=== PATIENT | male | born 2000 | race Caucasian/White ===

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

== ENCOUNTER 2023-12-29 14:58 | Observation (INO) | payer OTHER ==
[~2023-12-29] VITALS: Ht 175.3 cm; Wt 71.3 kg
[2023-12-29] VITALS (289 sets, daily range): BP systolic 118–122; BP diastolic 56–68; PULSE 85–91; TEMP 98.5; O2SAT 95–100
[~2023-12-29 14:58] MED LIST: HUMALOG100 U/ML SQ
[2023-12-29] MEDS ORDERED: Ondansetron 4 MG/2 ML VIAL IV ONE (15:45)
[2023-12-29] MEDS ORDERED: NS 1,000 ML IV ONE ×2 (15:45→16:45)
[2023-12-29 16:00] LABS: ACETONE,SERUM SMALL
[2023-12-29 16:04] LABS: BASO # 0.1 K/mm3 (0.0-0.2); BASO % 0.5 % (0.0-2.0); GRAN # 10.8 K/mm3 (1.4-6.5); GRAN % 89.8 % (42.2-75.2); HEMATOCRIT 48.7 % (42.0-52.0); HEMOGLOBIN 17.4 g/dl (13.5-18.0); LYMPH # 0.8 K/mm3 (1.2-3.4); LYMPH % 6.8 % (20.0-51.0); MEAN CELL VOLUME 82 fl (80.0-100.0); MEAN CORPUSCULAR HEMOGLOBIN 29 pg (27-31); MEAN CORPUSCULAR HGB CONC 36 g/dl (33.0-37.0); MEAN PLATELET VOLUME 9.2 fl (7.4-10.4); MONO # 0.3 K/mm3 (0.1-0.6); MONO % 2.5 % (1.7-9.3); PLATELET COUNT 342 K/mm3 (130-400); RED BLOOD COUNT 5.91 M/mm3 (4.20-5.60); REDCELL DISTRIBUTION WIDTH-CV 12.5 % (11.5-14.5)
[2023-12-29 16:08] LABS: ALANINE AMINOTRANSFERASE 23 U/L (0-55); ALKALINE PHOSPHATASE 83 U/L (40-150); ANION GAP 24 mmol/L (7-16); AST,SGOT 43 U/L (5-34); BILIRUBIN,TOTAL 1.2 mg/dL (0.2-1.2); BLOOD UREA NITROGEN 21 mg/dL (9-21); CALCIUM 9.7 mg/dL (8.4-10.2); CHLORIDE 104 mmol/L (98-107); GLUCOSE 236 mg/dL (70-99); LIPASE < 7 U/L (8-78); POTASSIUM 5.3 mmol/L (3.5-4.5); SODIUM 140 mmol/L (136-145); TOTAL PROTEIN 8.1 gm/dL (6.2-8.1)
[2023-12-29 16:14] LABS: CARBON DIOXIDE 12 mmol/L (22-29)
[2023-12-29] MEDS ORDERED: Insulin Human Regular/NS 100 ML IV ONE (16:30)
[2023-12-29] MEDS ORDERED: D5 1/2 NS 1,000 ML IV SCH (16:45)
[2023-12-29] MEDS ORDERED: Docusate Sodium 100 MG CAP PO PRN (16:45)
[2023-12-29] MEDS ORDERED: Ondansetron 4 MG/2 ML VIAL IV PRN (16:45)
[2023-12-29] MEDS ORDERED: Insulin Human Regular/NS 100 ML IV SCH (16:45)
[2023-12-29] MEDS ORDERED: NS 1,000 ML IV SCH (16:45)
[2023-12-29] MEDS ORDERED: Polyethylene Glycol 3350 17 GM PDS PO PRN (16:45)
[2023-12-29] MEDS ORDERED: Acetaminophen 325 MG TAB PO PRN (16:45)
[2023-12-29] MEDS ORDERED: Nicotine 14 MG DAILY PATCH TD SCH (18:07)
[2023-12-29 19:07] LABS: CALCIUM 8.7 mg/dL (8.4-10.2); POTASSIUM 4.5 mmol/L (3.5-4.5)
[2023-12-29 19:34] LABS: CREATININE, serum 1.03 mg/dL (0.72-1.25)
[2023-12-29 19:39] LABS: MAGNESIUM 1.8 mg/dL (1.6-2.6); PHOSPHOROUS 2.6 mg/dL (2.3-4.7)
[2023-12-29 21:08] LABS: CALCIUM 8.7 mg/dL (8.4-10.2); CREATININE, serum 0.89 mg/dL (0.72-1.25); POTASSIUM 4.2 mmol/L (3.5-4.5)
[2023-12-29 23:15] LABS: CALCIUM 8.7 mg/dL (8.4-10.2); CREATININE, serum 0.97 mg/dL (0.72-1.25); POTASSIUM 4.3 mmol/L (3.5-4.5)
[2023-12-30] VITALS (635 sets, daily range): BP systolic 108–119; BP diastolic 59–68; PULSE 47–76; TEMP 98.2–98.5; O2SAT 93–99
[2023-12-30 01:00] LABS: CALCIUM 8.6 mg/dL (8.4-10.2); CREATININE, serum 0.94 mg/dL (0.72-1.25); POTASSIUM 4.2 mmol/L (3.5-4.5)
--- NOTE | 2023-12-30 01:10 | NUR ---
2350: RECVD ORDER TO TURN OFF INSULIN GTT, TURN OFF D51/2NS, AND ALLOW PT TO HOOK HIS OWN PUMP UP TO HIMSELF( PER [facility] TEAM LEAD. THIS WAS DONE AT THIS TIME. GAP CLOSED AND CO2 IN NORMAL RANGE. PT SIGNED APPROPRIATE PAPERWORK FOR USING HIS OWN PUMP.
[2023-12-30 03:08] LABS: CALCIUM 8.6 mg/dL (8.4-10.2); CREATININE, serum 0.93 mg/dL (0.72-1.25); POTASSIUM 3.8 mmol/L (3.5-4.5)
--- NOTE | 2023-12-30 03:35 | NUR ---
0310: NOTIFIED ELI, THAT AT 0230 PT'S BG 79, GAVE 120MLS ORANGE JUICE AND RECHECKED BG AT THIS TIME AND IT WAS 78. RECVD ORDER TO PAUSE PUMP AND GIVE ADDITIONAL ORANGE JUICE. ALSO OFFERED SOME FOOD BUT THE PT DECLINED. WILL RECHECK BG IN ONE HOUR.
[2023-12-30 05:42] LABS: BASO # 0.1 K/mm3 (0.0-0.2); BASO % 0.8 % (0.0-2.0); EOS # 0.1 K/mm3 (0.0-0.7); EOS % 0.7 % (0.0-4.0); GRAN # 6.2 K/mm3 (1.4-6.5); HEMATOCRIT 38.8 % (42.0-52.0); LYMPH # 1.7 K/mm3 (1.2-3.4); LYMPH % 19.3 % (20.0-51.0); MEAN CELL VOLUME 82 fl (80.0-100.0); MEAN CORPUSCULAR HGB CONC 36 g/dl (33.0-37.0); MEAN PLATELET VOLUME 9.4 fl (7.4-10.4); MONO # 0.8 K/mm3 (0.1-0.6); MONO % 8.9 % (1.7-9.3); RED BLOOD COUNT 4.75 M/mm3 (4.20-5.60); REDCELL DISTRIBUTION WIDTH-CV 12.5 % (11.5-14.5)
[2023-12-30 05:56] LABS: CALCIUM 8.8 mg/dL (8.4-10.2); CREATININE, serum 0.88 mg/dL (0.72-1.25); POTASSIUM 4.2 mmol/L (3.5-4.5)
[2023-12-30 06:07] LABS: MEAN CORPUSCULAR HEMOGLOBIN 29 pg (27-31); PLATELET COUNT 229 K/mm3 (130-400)
--- NOTE | 2023-12-30 07:10 | NUR ---
Report received from MAYO Crain. Pt appears to be sleeping this AM; no s/s discomfort. Insulin gtt was turned off overnight and blood sugars have been stable. No medications infusing at this time. Call light in reach.
--- NOTE | 2023-12-30 08:55 | NUR ---
[employer] met with patient to complete initial intake. Patient's girlfriend, Malcolm is at bedside. Patient is from [place] but [facility] [place]. Patient is independent with ADLS and works at [employer]. Patient sees Dr. Miguel Angel Isbell for primary care and obtains medications from [facility]. Patient uses an insulin pump and no other DME. Patient does not have DPOA-HC and his next of kin is his mother, Maida (ph#[phone]). Discharge Plan: Home
[2023-12-30] MEDS ORDERED: Influenza Virus Vaccine, Quad '23-24 (6 MOS+) 0.5 ML SYRINGE IM SCH (09:00)
[2023-12-30 09:54] LABS: CALCIUM 8.8 mg/dL (8.4-10.2); CREATININE, serum 0.87 mg/dL (0.72-1.25); POTASSIUM 4.1 mmol/L (3.5-4.5)
--- NOTE | 2023-12-30 11:52 | NUR ---
Pt discharged to home at this time. Pt given discharge instructions; all questions answered appropriately. PIV removed from left AC and right FA. Pt picked up by friend. Instructed to return to ED if symtoms return.
== END 2023-12-30 11:52 | disposition home or self-care (01) ==
LOC: COL.ER 14:58 → ICU 16:33 → COL.ER 16:33 → ICU 12-30 11:52
PROVIDERS: Nurse Practitioner Family; Physician Assistant; ADMIT Hospitalist
DX: E10.10 Type 1 diabetes mellitus with ketoacidosis without coma (principal); E10.649 Type 1 diabetes mellitus with hypoglycemia without coma; N17.9 Acute kidney failure, unspecified; E87.5 Hyperkalemia; D72.829 Elevated white blood cell count, unspecified; F17.220 Nicotine dependence, chewing tobacco, uncomplicated; Z79.4 Long term (current) use of insulin
CPT/HCPCS: G0378; J1815; J2405; J7030